=== PATIENT | female | born 1965 | race Caucasian/White ===

== ENCOUNTER → 2023-09-11 | Outpatient (CLI) | payer BC, OTHER ==
[~2023-09-11] MED LIST: ATOR40TA70 PO; CARB200T5 PO; DIPH25CA79 PO; DOCU-143 PO; DOCU100C37 PO; ESTR1TAB24 PO; FLUT9.9S NSEACH; IBUP-1780 PO; LEVO150T6 PO; LORA10TA76 PO; MAGN500C15 PO; MOME13HF12 IH; OMEG-109 PO; OXYC-556 PO; PANT40TA52 PO; PARO20TA5 PO; PROP20TA5 PO; VITA1TAB17 PO
--- NOTE | 2023-09-12 12:31 | Diagnostic Imaging Report ---
Indication: Routine screening. Comparison is made with prior mammograms 07/31/2022 and 09/02/2019. 2-D and 3-D bilateral screening mammography was performed with CAD. Scattered fibroglandular densities are identified bilaterally. The parenchymal pattern is stable. No spiculated mass or malignant-appearing microcalcifications are identified. There are benign calcifications bilaterally. Axillae are unremarkable. IMPRESSION: BI-RADS Category 2 No mammographic features suspicious for malignancy are identified. ACR BI-RADS Category 2: Benign findings. Result letter will be mailed to the patient. Note: At least 10% of breast cancer is not imaged by mammography. Dictated by: Dictated on workstation # [id number]
== END ==
LOC: RAD 15:55
PROVIDERS: ATTEND Internal Medicine
DX: Z12.31 Encounter for screening mammogram for malignant neoplasm of breast (principal)
CPT/HCPCS: 77063; 77067

== ENCOUNTER 2023-10-11 09:06 | Emergency (ER) | payer OTHER ==
[~2023-10-11] VITALS: Ht 154 cm; Wt 122.0 kg
[2023-10-11 09:12] VITALS: BP 183/74
--- NOTE | 2023-10-11 09:37 | ED Lower Extremity ---
General Chief Complaint: Lower Extremity Stated Complaint: LT FOOT INJ | Nursing Triage Note: ARRIVED VIA AMB TO TRIAGE WITH COMPLAINTS OF LEFT FOOT PAIN. STATES SHE TRIPPED OVER A ROCK ON SATURDAY AND TODAY FELT/HEARD A SNAP. Source: patient Exam Limitations: no limitations (ADRIANNE KRAFT) History of Present Illness Date Seen by Provider: Oct 11, 2023 Time Seen by Provider: 09:15 Initial Comments 58 YO female presents to ED c/o left foot injury. Pt reports x 5 days ago she rolled her left ankle after stepping on a rock. States she was able to tolerate the pain by walking on the lateral aspect of her left foot. States last night while moving her couch she her a "snap" with immediate pain to the lateral left foot. She is now only able to bear weight on her left heel and has increased difficulty walking due to pain. She currently rates pain 4-5/10 with rest, however when she stands it becomes a 9/10. She had some relief with ibuprofen last night, she has not taken anything today. Denies any other complaints or sx at this time. Onset: yesterday Severity: moderate Pain/Injury Location: left foot Method of Injury: twisted Modifying Factors: Improves With Movement, Improves With Pain Medication, Improves With Rest (ADRIANNE KRAFT) Allergies and Home Medications Allergies Coded Allergies: No Known Drug Allergies (Unverified , 04/25/16) Patient Home Medication List Home Medication List Reviewed: Yes (ADRIANNE KRAFT) Atorvastatin Calcium (Atorvastatin Calcium) 40 Mg Tablet, 40 MG PO HS, (Reported) Entered as Reported by: TROY BARNHART on 04/25/16 1104 Carbamazepine (Epitol) 200 Mg Tablet, 200 MG PO BID, (Reported) Entered as Reported by: TROY BARNHART on 04/25/16 1018 Diphenhydramine HCl (Benadryl) 25 Mg Capsule, 50 MG PO HS, (Reported) Entered as Reported by: TROY BARNHART on 04/25/16 1104 Docusate Sodium (Colace) 100 Mg Capsule, 100 MG PO BID, (Reported) Entered as Reported by: TROY BARNHART on 04/25/16 1104 Docusate Sodium (Docusate Sodium) 100 Mg Capsule, 100 MG PO BID Prescribed by: EMILIA QUINTERO on 05/01/16 0725 Estradiol (Estradiol Tablet) 1 Mg Tablet, 1 MG PO DAILY Prescribed by: GEORGIE HIGHTOWER on 05/01/16 1002 Fluticasone Propionate (Flonase Allergy Relief) 9.9 Ml [place].susp, 1 SPR NSEACH BID, (Reported) Entered as Reported by: TROY BARNHART on 04/25/16 110 Ibuprofen (Ibuprofen) 800 Mg Tablet, 800 MG PO Q6HR Prescribed by: EMILIA QUINTERO on 05/01/16 0725 Levothyroxine Sodium (Levothyroxine Sodium) 150 Mcg Tablet, 150 MCG PO DAILY, (Reported) Entered as Reported by: TRYO BARNHART on 04/25/16 110 Loratadine (Claritin) 10 Mg Tablet, 10 MG PO DAILY, (Reported) Entered as Reported by: TROY BARNHART on 04/25/16 110 Magnesium Oxide (Magnesium) 500 Mg Capsule, 500 MG PO DAILY, (Reported) Entered as Reported by: TROY BARNHART on 04/25/16 110 Mometasone/Formoterol (Dulera 100 Mcg/5 Mcg Inhaler) 13 Gm Hfa.aer.ad, 1 PUFF IH BID, (Reported) Entered as Reported by: TROY BARNHART on 04/25/16 110 [place]-3 Fatty Acids/Fish Oil (Fish Oil 1,200 mg Softgel) 1 Each Capsule, 1,200 MG PO DAILY, (Reported) Entered as Reported by: TROY BARNHART on 04/25/16 110 Oxycodone HCl/Acetaminophen (Oxycodone-Acetaminophen 10-325) 1 Each Tablet, 1-2 TAB PO Q4H PRN for PAIN Prescribed by: EMILIA QUINTERO on 05/01/16 0725 Pantoprazole Sodium (Pantoprazole Sodium) 40 Mg Tablet.dr, 40 MG PO DAILY, (Reported) Entered as Reported by: TROY BARNHART on 04/25/16 110 Paroxetine HCl (Paroxetine HCl) 20 Mg Tablet, 20 MG PO HS, (Reported) Entered as Reported by: TROY BARNHART on 04/25/16 110 Propranolol HCl (Propranolol HCl) 20 Mg Tablet, 20 MG PO BID, (Reported) Entered as Reported by: TROY BARNHART on 04/25/16 1104 Vitamin B Complex (Vitamin B Complex) 1 Each Tablet, 1 EACH PO DAILY, (Reported) Entered as Reported by: TROY BARNHART on 04/25/16 1104 Review of Systems Constitutional: No chills, No diaphoresis, No fever EENTM: No ear pain, No blurred vision Respiratory: No cough, No dyspnea on exertion Cardiovascular: No chest pain Gastrointestinal: No abdominal pain, No melena, No nausea Genitourinary: No decreased output : No Musculoskeletal: other (left lateral foot pain) Skin: No change in color, No change in hair/nails, No rash Psychiatric/Neurological: Denies Headache, Denies Numbness, Denies Paresthesia (ADRIANNE KRAFT) All Other Systems Reviewed Negative Unless Noted: Yes (ADRIANNE KRAFT) Past Kyilurn-Kykllf-Rckmce Hx Patient Social History Tobacco Use?: No Substance use?: No Alcohol Use?: No (ADRIANNE KRAFT) Past Medical History Asthma, Sleep Apnea : No Reproductive Disorders: Yes Gastroesophageal Reflux Arthritis Anxiety, PTSD, Depression (ADRIANNE KRAFT) Family Medical History Alcoholism 19 MOTHER Arthritis 19 MOTHER Cardiovascular disease 19 FATHER 19 MOTHER Hypertension 19 FATHER 19 MOTHER Myocardial infarction 19 FATHER Physical Exam Vital Signs Vital Signs - First Documented 10/11/23 09:12 Temp 37.1 Pulse 66 Resp 16 B/P (MAP) 183/74 (110) Pulse Ox 95 O2 Delivery Room Air ([facility]) Vital Signs Capillary Refill : Less Than 3 Seconds (ADRIANNE KRAFT) Height, Weight, BMI Height: 5'1.00" Weight: 207lbs. 0.0oz. 93.113862oh; 51.00 BMI Method: General Appearance: WD/WN, no apparent distress HEENT: PERRL/EOMI, normal ENT inspection Neck: non-tender, full range of motion, supple Cardiovascular: normal peripheral pulses, regular rate, rhythm, no gallop, no JVD, no murmur Respiratory: chest non-tender, lungs clear, normal breath sounds, no respiratory distress, no accessory muscle use Gastrointestinal: non tender, soft Back: normal inspection Hips: bilateral hip non-tender Legs: bilateral leg non-tender Knees: bilateral knee non-tender Ankles: bilateral ankle non-tender Feet: left foot bone tenderness, left foot limited range of motion, left foot pain, left foot other (Pain to palpation over left lateral midfoot, primarily over the 5th metatarsal. Decreased ROM due to pain. Lateral and medial malleoli were nontender to palpation. She has 2+ posterior tibial pulses bilaterally with normal sensation and normal ROM of toes. No significant bruising, mild swelling noted over the lateral aspect. ) Reflexes: 2+ ankle (R), 2+ ankle (L) Neurologic/Tendon: normal sensation, normal motor functions, normal tendon functions, responds to pain Neurologic/Psychiatric: no motor/sensory deficits, alert, normal mood/affect, oriented x 3 Skin: normal color, warm/dry Lymphatic: no adenopathy (ADRIANNE KRAFT) Progress/Results/Core Measures Results/Orders My Orders Orders - FELICE TAM DO Foot, Left, 3 Views (10/11/23 09:29) Ibuprofen Tablet (Ibuprofen Tablet) (10/11/23 09:45) (FELICE TAM DO) Medications Given in ED Current Medications Medications Dose Ordered Sig/Monster Route Start Time Stop Time Status Last Admin Dose Admin Ibuprofen 600 mg ONCE ONCE PO 10/11/23 09:45 10/11/23 09:46 DC 10/11/23 09:51 600 MG (FELICE TAM DO) Vital Signs/I&O 10/11/23 09:12 Temp 37.1 Pulse 66 Resp 16 B/P (MAP) 183/74 (110) Pulse Ox 95 O2 Delivery Room Air (FELICE TAM DO) Blood Pressure Mean: 110 Progress Progress Note : Time: 09:42 Progress Note 58 YO presented to ED with left lateral foot pain secondary to twisting injury. Vitals requiring no immediate intervention in the ED. Exam is remarkable for tenderness overlying the fifth metatarsal specifically in the mid foot region laterally. No heel tenderness, no tenderness of medial or lateral malleoli. Normal ROM of ankle, normal sensation, normal pulses. DDx includes Hernandez fracture, pseudo-Hernandez fracture, sprain vs others. Will obtain XR of left foot and pain control with Tylenol. Pt agrees with plan. (ADRIANNE KRAFT) Departure Communication (Admissions) I have independently seen, evaluated the patient and agree with the provided history and physical by the medical student. I have independently reviewed imaging and I do not see any acute fracture, dislocation or other bony abnormality, soft tissue abnormality. We discharged home with a hard soled shoe, weightbearing as tolerated and ibuprofen Tylenol for comfort. She is comfortable agreeable current plan of care. Questions were sought and answered. (FELICE TAM DO) Impression Primary Impression: Sprain or strain of foot Disposition: HOME, SELF-CARE Condition: Stable Departure-Patient Inst. Referrals: TOBY MOELLER DO (PCP/Family) Primary Care Physician Patient Instructions: Sprain (DC) Add. Discharge Instructions: As discussed I believe you have sprained your foot. The x-ray showed no evidence for fracture, dislocation or other significant abnormalities. Bear weight as tolerated. Alternate ibuprofen and Tylenol for pain. Use the hard soled shoe for comfort as needed but I do encourage you to walk without it is much as you can. All discharge instructions reviewed with patient and/or family. Voiced understanding. ADRIANNE KRAFT Oct 11, 2023 09:37 FELICE TAM DO Oct 11, 2023 09:55
[2023-10-11] MEDS ORDERED: IBUPROFEN 600 MG TABLET PO ONE ×2 (09:45→09:53)
--- NOTE | 2023-10-11 10:20 | Diagnostic Imaging Report ---
CLINICAL INDICATION: Patient complains of left foot pain. Patient tripped over a rock on Saturday and today fell/heard a snap. Patient has 5th metatarsal tuberosity pain. EXAM: X-ray of the left foot, 3 views. COMPARISON: None. FINDINGS: There is no acute fracture or dislocation. There are hypertrophic calcaneal spurs at the plantar attachment. There is spurring of the dorsal midfoot. IMPRESSION: 1: There is no fracture or dislocation involving the left foot. 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 Dictated by: Dictated on workstation # [id number]
== END 2023-10-11 09:57 | disposition home or self-care (01) ==
LOC: EDUNIT# 09:06 → ER 09:10
DX: M79.672 Pain in left foot (principal); X50.1XXA Overexertion from prolonged static or awkward postures, initial encounter
CPT/HCPCS: 73630